=== PATIENT | male | born 1980 | race African-American/Black ===

== ENCOUNTER 2022-05-17 22:18 | Emergency (ER) | payer MEDICARE, OTHER ==
[~2022-05-17] VITALS: Ht 185.4 cm; Wt 81.6 kg
[2022-05-17] MEDS ORDERED: AMLO-212 PO (22:54)
[2022-05-17] MEDS ORDERED: RISP4TAB4 PO (22:54)
[2022-05-17] MEDS ORDERED: PARO25TA16 PO (22:54)
--- NOTE | 2022-05-17 23:20 | NUR ---
Dr. Patino at bedside. MSE in progress.
[2022-05-17] MEDS ORDERED: MISCELLANEOUS MED XX ONE (23:30)
[2022-05-17] MEDS ORDERED: risperiDONE 1 MG TABLET ONE (23:39)
[2022-05-17 23:55] LABS: HEMATOCRIT 39.9 % (36.7-47.1); MEAN CORPUSCULAR HEMOGLOBIN 32.1 uug (23.8-33.4); MEAN CORPUSCULAR VOLUME 91.9 fL (73.0-96.2); PLATELET COUNT (AUTO) 201 K/uL (152-348)
[2022-05-18 00:02] LABS: ALANINE AMINOTRANSFERASE 54 U/L (16-63); ALKALINE PHOSPHATASE 75 U/L (50-136); ASPARTATE AMINOTRANSFERASE 75 U/L (15-37); BILIRUBIN,DIRECT 0.1 mg/dL (0.0-0.2); BILIRUBIN,TOTAL 0.3 mg/dL (0.2-1.0); CARBON DIOXIDE 31 mmol/L (21-32); CHLORIDE 105 mmol/L (98-107); CREATININE 1.1 mg/dL (0.6-1.3); GLUCOSE 101 mg/dL (74-106); POTASSIUM 4.2 mmol/L (3.5-5.1); TOTAL PROTEIN, SERUM 7.3 g/dL (6.4-8.2); UREA NITROGEN, BLOOD 11 mg/dL (7-18)
[2022-05-18 00:06] LABS: ACETAMINOPHEN < 2.0 ug/mL (10-30)
[2022-05-18 00:14] LABS: *BILIRUBIN,URIN NEGATIVE (NEGATIVE); *BLOOD, URINE NEGATIVE (NEGATIVE); *CLARITY,URINE CLEAR (CLEAR); *COLOR,URINE YELLOW (YELLOW); *KETONES,URINE NEGATIVE (NEGATIVE); LEUKOCYTE ESTERASE ,URINE TRACE (NEGATIVE); NITRITE, URINE NEGATIVE (NEGATIVE); UGLUCOSE NEGATIVE (NEGATIVE)
[2022-05-18 00:16] LABS: BACTERIA,URINE NONE SEEN /HPF (NONE SEEN); RBC,URINE 0-3 /HPF (0-3); SQUAMOUS EPITHELIAL CELL,UR FEW /HPF (NONE SEEN); WBC,URINE 0-3 /HPF (0-3)
[2022-05-18 00:29] LABS: ETHANOL < 3 MG/DL (0-0)
[2022-05-18 00:30] LABS: *AMPHETAMINE, URINE POSITIVE (NEGATIVE); *CANNABINOID, URINE POSITIVE (NEGATIVE); *COCCAINE, URINE NEGATIVE (NEGATIVE); *OPIATE, URINE NEGATIVE (NEGATIVE); *PHENCYCLIDINE SCREEN,URINE NEGATIVE (NEGATIVE)
--- NOTE | 2022-05-18 00:54 | NUR ---
Contacted Tramaine Conway LCSW for psych eval.
[2022-05-18] MEDS ORDERED: OLANZAPINE 5 MG TABLET ONE (01:00)
[2022-05-18] MEDS ORDERED: OLANZAPINE 5 MG TABLET PO ONE (01:00)
--- NOTE | 2022-05-18 01:15 | NUR ---
[facility] contacted for patient transfer. Facesheet and summary report sent to .
--- NOTE | 2022-05-18 02:55 | NUR ---
Sherri from [facility] intake called back who states they accept patient. Accepting Dr Lord. Call for report .
--- NOTE | 2022-05-18 02:58 | NUR ---
Called [facility] ambulance. ETA is 30mins.
--- NOTE | 2022-05-18 03:15 | NUR ---
Report given to Sarika AMANDA at [facility] [address].
--- NOTE | 2022-05-18 03:35 | NUR ---
[facility] arrived to [place].
--- NOTE | 2022-05-18 03:55 | NUR ---
Patient left with [facility] to [facility].
[2022-05-18 04:29] VITALS: BP 125/89
== END 2022-05-18 03:55 ==
LOC: ER 22:18
DX: F15.10 Other stimulant abuse, uncomplicated (principal); F22 Delusional disorders; R03.0 Elevated blood-pressure reading, without diagnosis of hypertension; F20.9 Schizophrenia, unspecified; F31.9 Bipolar disorder, unspecified; Z79.899 Other long term (current) drug therapy; Z20.822 Contact with and (suspected) exposure to COVID-19
CPT/HCPCS: 36415; 85025; G0480

== ENCOUNTER 2022-05-18 04:42 | Emergency (ER) | payer MEDICAID, MEDICARE ==
[~2022-05-18] VITALS: Ht 185.4 cm; Wt 81.6 kg
[~2022-05-18 04:42] MED LIST: AMLO-212 PO; PARO25TA16 PO; RISP4TAB4 PO
[2022-05-18] MEDS ORDERED: AMLODIPINE 5 MG TABLET ONE (08:27)
[2022-05-18] MEDS ORDERED: AMLODIPINE 5 MG TABLET PO ONE (08:30)
[2022-05-18] MEDS ORDERED: PAROXETINE HCL 20 MG TABLET PO SCH (09:00)
[2022-05-18 12:07] VITALS: BP 135/64
[2022-05-18] MEDS ORDERED: risperiDONE 2 MG TABLET PO SCH (21:00)
== END 2022-05-18 12:08 ==
LOC: ER 04:49
DX: F15.150 Other stimulant abuse with stimulant-induced psychotic disorder with delusions (principal); F20.9 Schizophrenia, unspecified; F31.9 Bipolar disorder, unspecified; R03.0 Elevated blood-pressure reading, without diagnosis of hypertension; Z79.899 Other long term (current) drug therapy; F12.90 Cannabis use, unspecified, uncomplicated
CPT/HCPCS: A4663